=== PATIENT | male | born 1940 | race Caucasian/White ===

== ENCOUNTER 2024-02-29 21:44 | Emergency (ER) | payer MEDICARE, SELFPAY ==
[2024-02-29 21:50] VITALS: BP 146/97; PULSE 40; RESP 17; TEMP 36.4; O2SAT 98
--- NOTE | 2024-02-29 22:17 | ECG_ITS ---
Test Date: 2024-02-29 22:50:08 Measurements Intervals [place] Rate: 114 P: 0 NV: 0 QRS: -18 QRSD: 104 T: 41 QT: 336 QTc: 464 Interpretive Statements ATRIAL FIBRILLATION WITH RAPID VENTRICULAR RESPONSE WITH ABERRANT CONDUCTION OR VENTRICULAR PREMATURE COMPLEXES POOR R-WAVE PROGRESSION ABNORMAL RHYTHM ECG No previous ECG available for comparison Electronically Signed On 03-01-2024 07:32:01 CDT by Neymar Vera M.D.
--- NOTE | 2024-02-29 22:50 | ED.GENADULT ---
HPI - General Adult General Chief complaint: Overdose Stated complaint: accidental med administration Time Seen by Provider: 02/29/24 22:11 History of Present Illness HPI narrative: patient 83-year-old gentleman who presents emergency department with chief complaint of accidental medication error from correction. The patient received his morning dose of medications after receiving his evening dose of medications this evening patient currently has no complaints has history of atrial fibrillation her history of dementia the patient currently is asymptomatic Related Data Home Medications Medication Instructions Recorded Confirmed multivitamin 1 tablet PO DAILY 06/10/22 12/15/23 Allergies Allergy/AdvReac Type Severity Reaction Status Date / Time No Known Allergies Allergy Verified 12/15/23 14:08 Review of Systems Review of Systems: A 10 system review of systems was completed on the patient and is negative except for what is stated in the HPI. Nursing and ancillary documentation was reviewed. [facility] Past Medical History Medical History Alzheimer's disease, unspecified Atherosclerotic heart disease of [place] coronary artery without angina pectoris Chronic atrial fibrillation, unspecified History of heart attack 2014 Hyperlipidemia, unspecified Vitamin B12 deficiency Surgical History Surgical History H/O hernia repair 2014 Social History Social History Smoking status: Former smoker Alcohol intake: current Alcohol use details: 1 beer daily Substance use: never Substance use type: does not use Lack of Transportation: No Lack of Food: Never True Current Housing: I Have Housing Concerned About Future Housing: No Difficulty Paying Gas/Electric Bills: No Difficulty Paying for Meds: No Education: Trade/Vocational Certificate Difficulty w/ Childcare or Family Care: No Living arrangements: alone Occupation/Education: retired Gender identity (if verbalized by the patient): Male Sexual Orientation (if Verbalized by the Patient): Straight or Heterosexual Spiritual care concerns: No Exam Narrative: GENERAL: Well-appearing, well-nourished, and in no acute distress. HEAD: Normocephalic, atraumatic. EYES: PERRLA and EOMI. ENT: Nares clear, no rhinorrhea or epistaxis. Mucous membranes moist. NECK: Supple. CHEST: Clear to auscultation. No respiratory distress. HEART: Regular rate and rhythm. No murmur heard. Normal peripheral pulses. ABDOMEN: Soft, nontender, nondistended, normal active bowel sounds. EXTREMITIES: Normal range of motion. No edema. SKIN: Warm, dry, no rash. NEURO: No focal deficits. Alert and oriented x3. pleasantly confused PSYCH: Normal mood and affect. Course Vital Signs Vital signs: Vital Signs Temperature 36.4 C 02/29/24 21:50 Pulse Rate 40 L 02/29/24 21:50 Respiratory Rate 17 02/29/24 21:50 Blood Pressure 146/97 H 02/29/24 21:50 Pulse Oximetry 98 02/29/24 21:50 Oxygen Delivery Room Air 02/29/24 21:50 Temperature 36.4 C 02/29/24 21:50 Pulse Rate 40 L 02/29/24 21:50 Respiratory Rate 16 02/29/24 22:56 Blood Pressure 146/97 H 02/29/24 21:50 Pulse Oximetry 98 02/29/24 21:50 Oxygen Delivery Room Air 02/29/24 21:50 Medical Decision Making [facility] Narrative Medical decision making narrative: differential diagnosis includes medication overdose, electrolyte abnormality, EKG showed atrial fibrillation with a rate of 114 patient received an additional dose of 25 mg of Lopressor at the facility. The patient is currently asymptomatic will be observed for 2 hours and will be discharged home Vital Signs Vital Signs: Vital Signs Temperature 36.4 C 02/29/24 21:50 Pulse Rate 40 L 02/29/24 21:50 Respirator
[2024-02-29 22:56] VITALS: RESP 16
[2024-02-29 22:56] LABS: Basophils Absolute Auto 0.1 K/mm3 (0.0-0.1); Basophils Percent Auto 0.9 % (0.2-1.2); Eosinophils Absolute Auto 0.4 K/mm3 (0-0.3); Eosinophils Percent Auto 6.7 % (0-4.4); Hematocrit 38.9 % (42.0-52.0); Hemoglobin 13.1 g/dL (14.0-18.0); Immature Granulocyte Absolute 0.01 K/mm3 (0.00-0.031); Immature Granulocyte Percent A 0.2 % (0-0.5); Lymphocytes Absolute Auto 1.38 K/mm3 (0.9-3.2); Lymphocytes Percent Auto 25.7 % (18.3-44.2); Mean Corpuscular HGB Conc 33.7 g/dl (32-36); Mean Corpuscular Hemoglobin 33.4 pg (26-34); Mean Corpuscular Volume 99.2 fl (80-100); Mean Platelet Volume 9.5 fl (7.4-10.4); Monocytes Absolute Auto 0.7 K/mm3 (0.1-0.6); Monocytes Percent Auto 12.1 % (2.6-8.5); Neutrophils Absolute Auto 2.9 K/mm3 (1.3-6.7); Neutrophils Percent Auto 54.4 % (45.5-73.1); Platelet Count Result 143 k/mm3 (150-375); Red Blood Count 3.92 M/mm3 (4.6-6.20); Red Cell Distribution Width 12.9 % (11.5-14.5); White Blood Count 5.4 K/mm3 (4.5-10.0)
[2024-02-29 23:09] LABS: INR 2.5; Prothrombin Time 27.5 Seconds (11.1-14.7)
[2024-02-29 23:10] LABS: Alanine Aminotransferase 37 U/L (6-50); Albumin Level 4.1 g/dL (3.5-5.1); Alkaline Phosphatase 48 U/L (38-126); Anion Gap 9 mmol/L (4-12); Aspartate Amino Transferase 52 U/L (17-59); Bilirubin,Total 0.5 mg/dL (0.2-1.3); Blood Urea Nitrogen 20 mg/dL (9-20); Calcium 9.1 mg/dL (8.4-10.2); Carbon Dioxide 25 mmol/L (22-30); Chloride 101 mmol/L (98-107); Estimated Glomerular Filt Rate > 60; Glucose 109 mg/dL (65-110); Magnesium 2.1 mg/dL (1.6-2.3); Potassium 4.6 mmol/L (3.4-5.0); Sodium 135 mmol/L (137-145)
[2024-02-29 23:21] LABS: Troponin I < 0.012 ng/mL (0.000-0.034)
--- NOTE | 2024-03-01 00:37 | PC.NURSE ---
poa reviewed discharge instructions with this rn. Report attempted to be called to [facility] r[facility] no questions.
[2024-03-01 00:38] VITALS: BP 128/78; PULSE 84; RESP 16; TEMP 37.2; O2SAT 98
== END 2024-03-01 00:40 ==
PROVIDERS: Emergency Provider Emergency Medicine; PCP Family Medicine
DX: T50.911A Poisoning by multiple unspecified drugs, medicaments and biological substances, accidental (unintentional), initial encounter (principal); G30.9 Alzheimer's disease, unspecified; F02.80 Dementia in other diseases classified elsewhere, unspecified severity, without behavioral disturbance, psychotic disturbance, mood disturbance, and anxiety; I48.20 Chronic atrial fibrillation, unspecified; I25.10 Atherosclerotic heart disease of native coronary artery without angina pectoris; E53.8 Deficiency of other specified B group vitamins; E78.5 Hyperlipidemia, unspecified; Z87.891 Personal history of nicotine dependence; Z79.01 Long term (current) use of anticoagulants; Z79.899 Other long term (current) drug therapy; R94.31 Abnormal electrocardiogram [ECG] [EKG]
CPT/HCPCS: 36415; 80053; 83735; 84484; 85025; 85610; 85730; 93005; 99284